=== PATIENT | female | born 1945 | race African-American/Black ===

== ENCOUNTER 2024-01-06 16:38 | Inpatient (IN) | payer MEDICARE, OTHER ==
[~2024-01-06] VITALS: Ht 165.1 cm; Wt 76.7 kg
[2024-01-06] MEDS: IV NS 0.9% 1,000 ML BAG IV ONE ×2 (17:00→17:30)
[2024-01-06 17:05] LABS: HEMOGLOBIN 7.1 g/dL (11.5-14.8); MEAN CORPUSCULAR HEMOGLOBIN 30 PG (26.0-33.0); MONOCYTES # (AUTO) 0.2 K/uL (0.1-1.30); RED BLOOD CELL COUNT(AUTO) 2.38 MIL/uL (4.0-5.2)
[2024-01-06 17:10] LABS: BASOPHILS % (AUTO) 0.1 % (0.0-2.0); HEMATOCRIT 21 % (33-45); LYMPHOCYTES # (AUTO) 8.8 K/uL (0.8-4.8); LYMPHOCYTES % (AUTO) 91.4 % (20.0-44.0); MEAN CORPUSCULAR HGB CONC 33 g/dl (31.0-36.0); MEAN CORPUSCULAR VOLUME 90 fL (82-100); NEUTROPHILS # (AUTO) 0.6 K/uL (1.8-8.9); NEUTROPHILS % (AUTO) 6.5 % (43.0-81.0); PLATELET COUNT (AUTO) 147 K/uL (150-450); RED CELL DISTRIBUTION WIDTH 22.5 % (11.5-15.0); WHITE BLOOD COUNT (AUTO) 9.6 K/uL (4.3-11.0)
[2024-01-06 17:15] LABS: CALCIUM, SERUM 8.1 mg/dL (8.5-10.1); CARBON DIOXIDE 24 mmol/L (21-32); CHLORIDE 107 mmol/L (98-107); CREATININE 1.4 mg/dL (0.6-1.3); GLUCOSE 99 mg/dL (74-106); SODIUM SERUM 141 mmol/L (136-145); UREA NITROGEN, BLOOD 27 mg/dL (7-18)
[2024-01-06 17:21] LABS: ALANINE AMINOTRANSFERASE 11 U/L (12-78); ALBUMIN 2.5 g/dL (3.4-5.0); ALKALINE PHOSPHATASE 36 U/L (46-116); ASPARTATE AMINOTRANSFERASE 16 U/L (15-37); BILIRUBIN,DIRECT 0.3 mg/dL (0.0-0.2); TOTAL PROTEIN, SERUM 5.7 g/dL (6.4-8.2)
[2024-01-06 17:22] LABS: INR 1.22 (0.91-1.10); PARTIAL THROMBOPLASTIN TIME 25.3 SEC (24.3-34.3); PROTHROMBIN TIME 12.5 SECS (9.2-11.1)
[2024-01-06] MEDS: CEFEPIME 1 GM in IV D5W 50 ML IV ONE (17:30)
[2024-01-06] MEDS ORDERED: IOHEXOL-300 100 ML VIAL IV ONE ×2 (17:37→20:57)
[2024-01-06] MEDS ORDERED: IV NS 0.9% 250 ML IV ONE ×2 (17:37→20:57)
[2024-01-06 17:48] LABS: APPEARANCE,URINE Clear (CLEAR); BILIRUBIN,URINE Negative (NEGATIVE); BLOOD, URINE Negative Ery/uL (NEGATIVE); COLOR,URINE YELLOW (YELLOW); KETONES,URINE Negative (NEGATIVE); LEUKOCYTE ESTERASE ,URINE Negative (NEGATIVE); NITRITE, URINE Negative (NEGATIVE); PH,URINE 6.5 (5.0-8.0); PROTEIN,URINE Negative (NEGATIVE); UGLUCOSE Negative (NEGATIVE); UROBILINOGEN,URINE 0.2 EU/dL (0.2)
[2024-01-06 18:00] LABS: LACTIC ACID 3.3 mmol/L (0.4-2.0)
[2024-01-06] MEDS: VANCOMYCIN 1 GM in IV D5W 250 ML IV ONE (18:00)
[2024-01-06] MEDS ORDERED: SENN-261 PO (18:30)
[2024-01-06] MEDS ORDERED: TIOT18CA3 IH (18:30)
[2024-01-06] MEDS ORDERED: DICL100G34 TP (18:30)
[2024-01-06] MEDS ORDERED: OMEP40CA21 PO (18:30)
[2024-01-06] MEDS ORDERED: BISA5TAB10 PO (18:30)
[2024-01-06] MEDS ORDERED: ROSU5TAB PO (18:30)
[2024-01-06] MEDS ORDERED: AMLO1TAB12 PO (18:30)
[2024-01-06] MEDS ORDERED: PYRI50TA15 PO (18:30)
[2024-01-06] MEDS ORDERED: PROC5TAB56 PO (18:30)
[2024-01-06] MEDS ORDERED: MELA3TAB41 PO (18:30)
[2024-01-06] MEDS ORDERED: OXYC5TAB3 PO (18:30)
[2024-01-06] MEDS ORDERED: LATA2.5D2 EACHEYE (18:30)
[2024-01-06] MEDS ORDERED: ONDA8TAB65 PO (18:30)
[2024-01-06] MEDS ORDERED: DEXT15DR6 EACHEYE (18:30)
[2024-01-06] MEDS ORDERED: LIDO30CR47 TP (18:30)
[2024-01-06] MEDS ORDERED: POLY17PO4 PO (18:30)
[2024-01-06] MEDS ORDERED: LEVO100T9 PO (18:30)
[2024-01-06] MEDS ORDERED: ISON300T27 PO (18:30)
[2024-01-06] MEDS ORDERED: BISA10SU11 RC (18:30)
[2024-01-06] MEDS ORDERED: FLUT1DIS3 IH (18:30)
[2024-01-06] MEDS ORDERED: ALBU18HF2 IH (18:30)
[2024-01-06] MEDS ORDERED: FURO-144 PO (18:30)
[2024-01-06] MEDS ORDERED: ACET-2030 PO (18:30)
[2024-01-06 19:09] LABS: BAND % (MANUAL) 4 % (0.0-5.0); LYMPHOCYTES % (MANUAL) 82 % (16-48); MONOCYTES % (MANUAL) 4 % (0-11.0); NEUTROPHILS % (MANUAL) 10 (42-76); PLATELET ESTIMATE DECREASED; SMUDGE CELLS 2+
[2024-01-06 19:10] LABS: ANISOCYTOSIS 1+; OVALOCYTES 1+; TARGET CELLS 1+; TEAR DROP CELLS 1+
[2024-01-06 20:00] LABS: THYROID STIMULATING HORMONE 0.652 uIU/mL (0.358-3.74)
[2024-01-06] MEDS ORDERED: ACETAMINOPHEN 650 MG/SUPP.RECT RC ONE (20:31)
[2024-01-06] MEDS: ACETAMINOPHEN 650 MG/SUPP.RECT RC ONE (20:44)
[2024-01-06] MEDS: FLUTICASONE/SALMETEROL 1 DISK IH SCH (21:00)
[2024-01-06] MEDS ORDERED: ALBUTEROL SULFATE 8 GM HFA.AER.AD IH PRN (21:00)
[2024-01-06] MEDS: LATANOPROST EYE DROP 0.005% 2.5 ML BOTTLE EACHEYE SCH (22:00)
[2024-01-06] MEDS: ATORVASTATIN 40 MG TABLET PO SCH (22:00)
[2024-01-06] MEDS ORDERED: NOREPINEPHRINE 8MG/250ML RTU 250 ML IV ONE (23:13)
[2024-01-06] MEDS ORDERED: LEVOFLOXACIN 250 MG /D5W 50 ML 0 ML IV ONE (23:13)
[2024-01-06] MEDS: NOREPINEPHRINE 8 MG in IV D5W 242 ML IV PRN (23:20)
[2024-01-07] VITALS (13 sets, daily range): BP systolic 46–196; BP diastolic 11–163; TEMP 96.5; O2SAT 57–90
[2024-01-07] MEDS ORDERED: ACETAMINOPHEN 325 MG TABLET PO PRN (01:30)
[2024-01-07] MEDS: ENOXAPARIN SODIUM 40 MG/0.4 ML DISP.SYRIN SQ SCH (01:30)
[2024-01-07] MEDS ORDERED: ONDANSETRON HCL/PF 4 MG/2 ML VIAL IVP PRN (01:30)
[2024-01-07 02:23] LABS: ABG BASE EXCESS -3.9 mmol/L; ABG OXYGEN SATURATION 96.9 % (92.0-98.5); ABG PCO2 27.8 mmHg (35.0-45.0); ABG PH 7.458 (7.350-7.450); ABG PO2 97.3 mmHg (75.0-100.0); ABG TOTAL HEMOGLOBIN 8.2 G/dL (12.0-16.0); COHb 0.3 % (0.5-1.5); MetHb 0.5 % (0.0-1.5); O2Hb 96.1 % (94.0-97.0); SITE, ABG Right Radial; VENT MODE, BG Bipap 15/5 60% RR20
[2024-01-07] MEDS ORDERED: PIPERACI/TAZO 3.375GM/D5W 50ML PB IV ONE (03:24)
[2024-01-07] MEDS: ZOSYN IVPB 3.375 G in IV D5W 50ml IV ONE (03:29)
[2024-01-07] MEDS ORDERED: ENOXAPARIN SODIUM 40 MG/0.4 ML DISP.SYRIN SQ ONE (03:34)
[2024-01-07] MEDS ORDERED: NOREPINEPHRINE 8MG/250ML RTU 250 ML IV ONE ×3 (04:16→13:20)
[2024-01-07] MEDS ORDERED: MORPHINE SULFATE INJ 2 MG/ML DISP.SYRIN ONE (04:52)
[2024-01-07] MEDS: MORPHINE SULFATE INJ 2 MG/ML DISP.SYRIN IV PRN (04:55)
[2024-01-07] MEDS ORDERED: PIPERACILLIN /TAZOBACTAM 3.375 G in IV D5W 50 ML IV SCH (06:00)
[2024-01-07 06:17] LABS: ABG BASE EXCESS -11.5 mmol/L; ABG OXYGEN SATURATION 82.3 % (92.0-98.5); ABG PH 7.217 (7.350-7.450); ABG TOTAL HEMOGLOBIN 10.2 G/dL (12.0-16.0); COHb 0.3 % (0.5-1.5); MetHb 0.3 % (0.0-1.5); O2Hb 81.8 % (94.0-97.0); SITE, ABG Right Radial; VENT MODE, BG Bipap 15/5 100% rr20
[2024-01-07] MEDS ORDERED: LATANOPROST EYE DROP 0.005% 2.5 ML BOTTLE EACHEYE SCH (06:41)
[2024-01-07] MEDS ORDERED: ALBUTEROL FS 2.5 MG/0.5 ML VIAL.NEB NEB PRN (07:00)
[2024-01-07] MEDS: LEVOTHYROXINE SODIUM 100 MCG TABLET PO SCH (07:30)
[2024-01-07] MEDS ORDERED: IPRATROPIUM NEB FS 0.5 MG/2.5 ML AMPUL.NEB ONE (08:04)
[2024-01-07] MEDS ORDERED: ALBUTEROL FS 2.5 MG/0.5 ML VIAL.NEB ONE (08:04)
[2024-01-07] MEDS: IPRATROPIUM NEB FS 0.5 MG/2.5 ML AMPUL.NEB NEB SCH (08:08)
[2024-01-07] MEDS ORDERED: PROPOFOL 100 ML ONE (08:25)
[2024-01-07] MEDS: PROPOFOL 200 MG/20 ML VIAL IV ONE (08:28)
[2024-01-07] MEDS: FLUTICASONE/VILANTEROL 1 EACH BLST.W.DEV IH SCH (09:00)
[2024-01-07] MEDS: PYRIDOXINE HCL 50 MG TABLET PO SCH (09:00)
[2024-01-07] MEDS: AMLODIPINE BESYLATE 5 MG TABLET PO SCH (09:00)
[2024-01-07] MEDS: ISONIAZID (300 MG) 300 MG TABLET PO SCH (09:00)
[2024-01-07] MEDS: VALSARTAN 80 MG TABLET PO SCH (09:00)
[2024-01-07] MEDS: PIPERACILLIN /TAZOBACTAM 3.375 G in IV D5W 100 ML IV SCH (10:20)
[2024-01-07] MEDS: PHENYLEPHRINE 50 MG in IV NS 0.9% 245 ML IV PRN (11:08)
[2024-01-07] MEDS: VASOPRESSIN INJ 40 UNIT in IV NS 0.9% 38 ML IV PRN (11:08)
[2024-01-07 11:57] LABS: ABG BASE EXCESS -16.9 mmol/L; ABG OXYGEN SATURATION 46.9 % (92.0-98.5); ABG PCO2 41.2 mmHg (35.0-45.0); ABG PH 7.085 (7.350-7.450); ABG PO2 34.1 mmHg (75.0-100.0); ABG TOTAL HEMOGLOBIN 10.4 G/dL (12.0-16.0); COHb 0.3 % (0.5-1.5); MetHb 0.1 % (0.0-1.5); O2Hb 46.7 % (94.0-97.0); SITE, ABG Left Radial; VENT MODE, BG AC 18 500 100% +5
[2024-01-07] MEDS ORDERED: PROPOFOL 100 ML IV PRN (14:00)
[2024-01-07] MEDS ORDERED: PROPOFOL 10MG/ML 50ML 50 ML IV PRN (14:00)
[2024-01-07] MEDS ORDERED: IV D5/ 0.9% NACL 1,000 ML IV PRN (14:00)
[2024-01-07] MEDS: HYDROCORTISONE SOD SUCCINATE 100 MG/2 ML VIAL IV SCH (14:30)
[2024-01-07] MEDS: Sodium Bicarbonate 150 MEQ in IV D5W 1,000 ML IV SCH (14:56)
[2024-01-07] MEDS ORDERED: Sodium Bicarbonate 100 MEQ in IV D5 / 0.2% NACL 1,000 ML IV PRN (15:00)
[2024-01-07] MEDS: SODIUM BICARBONATE SYR 50 MEQ/50 ML DISP.SYRIN IV ONE (15:30)
[2024-01-07] MEDS ORDERED: HYDROCORTISONE SOD SUCCINATE 100 MG/2 ML VIAL ONE (16:31)
[2024-01-07] MEDS: NOREPINEPHRINE 32 MG in IV NS 0.9% 250 ML IV PRN (17:33)
[2024-01-07] MEDS: Z GUARD REMEDY 4 OZ OINT TP PRN (17:42)
[2024-01-07] MEDS ORDERED: SODIUM BICARBONATE SYR 50 MEQ/50 ML DISP.SYRIN IV ONE (19:38)
[2024-01-07] MEDS ORDERED: ENOXAPARIN SODIUM 40 MG/0.4 ML DISP.SYRIN SQ SCH (21:00)
[2024-01-07] MEDS ORDERED: DEXTROSE 50%-WATER 50 ML DISP.SYRIN IV ONE (21:17)
[2024-01-07] MEDS ORDERED: ATROPINE SULFATE 1 MG/10 ML DISP.SYRIN IV ONE (21:17)
[2024-01-08 04:31] LABS: ABG BASE EXCESS -22.7 mmol/L; ABG OXYGEN SATURATION 71.6 % (92.0-98.5); ABG PCO2 50.9 mmHg (35.0-45.0); ABG PH 6.889 (7.350-7.450); ABG PO2 60.1 mmHg (75.0-100.0); ABG TOTAL HEMOGLOBIN 9.4 G/dL (12.0-16.0); COHb 0.3 % (0.5-1.5); MetHb 0.4 % (0.0-1.5); O2Hb 71.1 % (94.0-97.0); SITE, ABG Left Brachial; VENT MODE, BG AC 18 500 100% +0
[2024-01-08 05:49] LABS: ABG BASE EXCESS -24.7 mmol/L; ABG OXYGEN SATURATION 67.8 % (92.0-98.5); ABG PCO2 49.9 mmHg (35.0-45.0); ABG PH 6.845 (7.350-7.450); ABG PO2 52.1 mmHg (75.0-100.0); ABG TOTAL HEMOGLOBIN 10.3 G/dL (12.0-16.0); COHb 0.3 % (0.5-1.5); MetHb 0.4 % (0.0-1.5); O2Hb 67.3 % (94.0-97.0); SITE, ABG Left Radial; VENT MODE, BG AC 26 475 100% +0
== END 2024-01-07 21:18 | DRG 871 ==
LOC: EDUNIT# 16:38 → ER 16:41 → TRANSITION 23:48 → ICU 01-07 00:28
PROVIDERS: ADMIT Nurse Practitioner Acute Care
PROC: 5A09357 Assistance with Respiratory Ventilation, Less than 24 Consecutive Hours, Continuous Positive Airway Pressure (ICD-10-PCS; principal; 2024-01-06)
PROC: 30233N1 Transfusion of Nonautologous Red Blood Cells into Peripheral Vein, Percutaneous Approach (ICD-10-PCS; 2024-01-06)
PROC: 5A1935Z Respiratory Ventilation, Less than 24 Consecutive Hours (ICD-10-PCS; 2024-01-07)
PROC: 0BH17EZ Insertion of Endotracheal Airway into Trachea, Via Natural or Artificial Opening (ICD-10-PCS; 2024-01-07)
PROC: 02HV33Z Insertion of Infusion Device into Superior Vena Cava, Percutaneous Approach (ICD-10-PCS; 2024-01-07)
PROC: B548ZZA Ultrasonography of Superior Vena Cava, Guidance (ICD-10-PCS; 2024-01-07)
DX: A41.9 Sepsis, unspecified organism (principal); G93.41 Metabolic encephalopathy; I21.4 Non-ST elevation (NSTEMI) myocardial infarction; J96.01 Acute respiratory failure with hypoxia; R65.21 Severe sepsis with septic shock; N17.0 Acute kidney failure with tubular necrosis; C95.90 Leukemia, unspecified not having achieved remission; E44.0 Moderate protein-calorie malnutrition; K80.00 Calculus of gallbladder with acute cholecystitis without obstruction; C79.9 Secondary malignant neoplasm of unspecified site; E87.4 Mixed disorder of acid-base balance; C55 Malignant neoplasm of uterus, part unspecified; D25.9 Leiomyoma of uterus, unspecified; K82.8 Other specified diseases of gallbladder; Z79.51 Long term (current) use of inhaled steroids; H40.9 Unspecified glaucoma; E78.5 Hyperlipidemia, unspecified; K21.9 Gastro-esophageal reflux disease without esophagitis; J44.9 Chronic obstructive pulmonary disease, unspecified; I11.0 Hypertensive heart disease with heart failure; I50.9 Heart failure, unspecified; E87.6 Hypokalemia; E88.09 Other disorders of plasma-protein metabolism, not elsewhere classified; G89.29 Other chronic pain; E83.51 Hypocalcemia; E86.1 Hypovolemia; E03.9 Hypothyroidism, unspecified; D50.9 Iron deficiency anemia, unspecified; D69.6 Thrombocytopenia, unspecified; M89.8X9 Other specified disorders of bone, unspecified site
CPT/HCPCS: 36415; 36600; 70450-TC; 71045-TC; 76705-TC; 80048-TC; 80076-TC; 82533; 82803-TC; 83605-TC; 84439-TC; 84443-TC; 84484-TC; 85025-TC; 85730-TC; 86850-TC; 87040-TC; 87186-TC; 92950-TC; 93307-TC; 94799-TC; A4223; A6403; G0378; J0171; J0461; J0692; J1650; J1720; J1956; J2270; J2310; J2543; J2704; J3370; J3475; J3490; J7030; J7040; J7050; J7060; J7070; P9016; Q9967